=== PATIENT | male | born 1995 | race Caucasian/White ===

== ENCOUNTER 2018-02-02 21:44 | Emergency (ER) | payer SELFPAY ==
[~2018-02-02] VITALS: Ht 182.9 cm; Wt 97.7 kg
[2018-02-02 21:47] VITALS: TEMP 98.2
[2018-02-02 22:43] VITALS: BP 132/88
[2018-02-02] MEDS ORDERED: NORCO 325 MG-51 TAB PO (23:00)
[2018-02-02 23:32] VITALS: PULSE 86
== END 2018-02-02 23:32 | disposition home or self-care (01) ==
LOC: COL.ER 21:44
DX: S43.005A Unspecified dislocation of left shoulder joint, initial encounter (principal); V00.131A Fall from skateboard, initial encounter
CPT/HCPCS: J1170; J2405

== ENCOUNTER 2018-03-01 08:27 | Outpatient (RCR) | payer SELFPAY ==
[~2018-03-01 08:27] MED LIST: NORCO 325 MG-51 TAB PO
== END 2018-03-31 15:30 | disposition home or self-care (01) ==
LOC: WSC 08:27
DX: S43.085D Other dislocation of left shoulder joint, subsequent encounter (principal); V00.131D Fall from skateboard, subsequent encounter